=== PATIENT | female | born 1960 | race Caucasian/White ===

== ENCOUNTER → 2022-08-12 | Day surgery (SDC) | payer OTHER ==
[~2022-08-12] VITALS: Ht 166.4 cm; Wt 66.6 kg
[~2022-08-12] MED LIST: ALEV220T22 PO; LIDOCAINE 2% 100MG/5ML SDV (FOR ANES.) As Ordered ONE; NS 1,000 ML IV ONE; PHENYLephrine 500MCG 5ML (100MCG/ML) SYRINGE As Ordered ONE; VITMTA PO; propofoL 200 MG/20 ML VIAL As Ordered ONE
[2022-08-12 14:09] VITALS: TEMP 96.8
[2022-08-12 14:26] VITALS: BP 134/86; O2SAT 98
== END | disposition home or self-care (01) ==
LOC: M OPP 12:04
PROVIDERS: ATTEND Surgery
DX: K62.1 Rectal polyp (principal); Z86.010 Personal history of colon polyps
CPT/HCPCS: 45380; 88305; J2370